=== PATIENT | female | born 1980 | race Native Hawaiian/Other Pacific Islander ===

== ENCOUNTER 2018-01-17 12:35 | Outpatient (CLI) | payer OTHER | END 2018-01-17 12:43 | disposition short-term general hospital (02) | LOC: AMB 12:35 | DX: S01.81XA Laceration without foreign body of other part of head, initial encounter (principal); V43.52XA Car driver injured in collision with other type car in traffic accident, initial encounter; Y93.89 Activity, other specified; Y92.89 Other specified places as the place of occurrence of the external cause | CPT/HCPCS: A0425; A0429 ==

== ENCOUNTER 2018-01-17 12:44 | Emergency (ER) | payer OTHER ==
[~2018-01-17] VITALS: Ht 170.2 cm; Wt 68.0 kg
[2018-01-17 12:57] VITALS: TEMP 100.6
[2018-01-17 14:20] VITALS: BP 120/76
== END 2018-01-17 14:20 | disposition home or self-care (01) ==
LOC: ED 12:44
DX: S00.01XA Abrasion of scalp, initial encounter (principal); S00.93XA Contusion of unspecified part of head, initial encounter; V43.52XA Car driver injured in collision with other type car in traffic accident, initial encounter
CPT/HCPCS: 96372; 99282; J1885

== ENCOUNTER → 2019-10-15 | Outpatient (CLI) | payer OTHER | LOC: LAB 11:28 | DX: U07.1 COVID-19 (principal) | CPT/HCPCS: 87635; G2023; U0002 ==

== ENCOUNTER 2020-06-02 07:52 | Emergency (ER) | payer OTHER ==
[~2020-06-02] VITALS: Ht 172.7 cm; Wt 65.8 kg
[2020-06-02 07:52] VITALS: TEMP 98
[2020-06-02 09:27] LABS: PLATELET COUNT 291 K/uL (152-353)
[2020-06-02 09:36] LABS: POTASSIUM 4.3 mmol/L (3.6-5.2)
[2020-06-02 11:18] VITALS: BP 108/67
== END 2020-06-02 11:18 | disposition home or self-care (01) ==
LOC: ED 07:55
PROVIDERS: Family Medicine
DX: S20.219A Contusion of unspecified front wall of thorax, initial encounter (principal); S80.12XA Contusion of left lower leg, initial encounter; S90.31XA Contusion of right foot, initial encounter; V49.40XA Driver injured in collision with unspecified motor vehicles in traffic accident, initial encounter; Y92.89 Other specified places as the place of occurrence of the external cause
CPT/HCPCS: 80053; 85027; 99283; Q9963

== ENCOUNTER 2020-06-09 10:09 | Outpatient (CLI) | payer OTHER | END 2020-06-09 21:51 | disposition home or self-care (01) | LOC: US 10:09 | PROVIDERS: ATTEND Nurse Practitioner | DX: E04.1 Nontoxic single thyroid nodule (principal) ==

== ENCOUNTER 2020-06-27 21:11 | Emergency (ER) | payer OTHER ==
[~2020-06-27] VITALS: Ht 172.7 cm; Wt 65.8 kg
[2020-06-27 22:30] VITALS: BP 103/68; TEMP 98.6
== END 2020-06-27 22:30 | disposition home or self-care (01) ==
LOC: ED 21:11
DX: S16.1XXA Strain of muscle, fascia and tendon at neck level, initial encounter (principal); M62.838 Other muscle spasm
CPT/HCPCS: 96372; 99283; J1885

== ENCOUNTER 2020-06-28 09:21 | Outpatient (CLI) | payer OTHER ==
[~2020-06-28] VITALS: Ht 30.5 cm; Wt 0.5 kg
== END 2020-06-28 21:05 | disposition home or self-care (01) ==
LOC: US 09:21
PROVIDERS: ATTEND Nurse Practitioner
DX: E04.1 Nontoxic single thyroid nodule (principal)
CPT/HCPCS: 60100